=== PATIENT | male | born 1955 | race Caucasian/White ===

== ENCOUNTER → 2016-03-03 | Outpatient (CLI) | payer OTHER ==
[~2016-03-03] MED LIST: CIPRO 500MG TA500 MG PO; FLEXERIL 1010 MG/TAB PO; FLOMAX 0.40.4 MG/CAP PO; INDERAL 20MG20 MG PO; LYRICA 100MG C100 M1 PO; MIRAPEX ER0.375 MG PO; NORCO 325 MG-51 TA1 PO; PRILOSEC 20MG20 MG PO; TORADOL 10MG TA10 MG PO
== END ==
LOC: LAB 07:34
DX: D50.8 Other iron deficiency anemias (principal); B35.1 Tinea unguium

== ENCOUNTER → 2017-05-07 | Outpatient (CLI) | payer BC ==
[2015-10-29 23:58] VITALS: BP 148/84
[2017-05-07 10:24] LABS: HEMATOCRIT 50.2 % (42.0-52.0); HEMOGLOBIN 16.2 g/dL (13.5-18.0); MEAN PLATELET VOLUME 10.8 fl (7.4-10.4); RED BLOOD COUNT 5.65 M/mm3 (4.20-5.60); RED CELL DISTRIBUTION WIDTH 14.1 % (11.5-14.5); WHITE BLOOD COUNT 5.9 K/mm3 (4.8-10.8)
[2017-05-07 10:39] LABS: ALBUMIN 4.2 g/dL (3.5-5.0); BUN/CREATININE RATIO 21.6 (6.0-26.0); CALCIUM 9.2 mg/dL (8.4-10.2); POTASSIUM 4.7 mmol/L (3.6-5.0); TOTAL BILIRUBIN 1.1 mg/dL (0.2-1.3); TOTAL PROTEIN 7.5 g/dL (6.3-8.2)
== END ==
LOC: LAB 09:46
PROVIDERS: Family Medicine
DX: Z00.00 Encounter for general adult medical examination without abnormal findings (principal); R06.02 Shortness of breath; K21.9 Gastro-esophageal reflux disease without esophagitis; Z13.1 Encounter for screening for diabetes mellitus; Z13.6 Encounter for screening for cardiovascular disorders; Z86.2 Personal history of diseases of the blood and blood-forming organs and certain disorders involving the immune mechanism; Z12.12 Encounter for screening for malignant neoplasm of rectum; R53.83 Other fatigue; E66.9 Obesity, unspecified; Z88.5 Allergy status to narcotic agent

== ENCOUNTER → 2017-05-17 | Outpatient (CLI) | payer BC ==
[2015-10-29 23:58] VITALS: BP 148/84
== END ==
LOC: LAB 12:08
DX: Z12.12 Encounter for screening for malignant neoplasm of rectum (principal); Z00.00 Encounter for general adult medical examination without abnormal findings; Z86.2 Personal history of diseases of the blood and blood-forming organs and certain disorders involving the immune mechanism

== ENCOUNTER → 2017-06-16 | Outpatient (CLI) | payer BC ==
[2015-10-29 23:58] VITALS: BP 148/84
== END ==
LOC: RAD 06-15 07:15
DX: J32.0 Chronic maxillary sinusitis (principal)

== ENCOUNTER 2018-10-02 07:36 | Emergency (ER) | payer BC ==
[~2018-10-02] VITALS: Ht 195.6 cm; Wt 113.6 kg
[2018-10-02] MEDS ORDERED: NORCO 10-325 T1 EACH PO (08:32)
[2018-10-02] MEDS ORDERED: KETOROLAC10 MG PO (08:41)
[2018-10-02 08:44] VITALS: BP 138/72
== END 2018-10-02 08:44 | disposition home or self-care (01) ==
LOC: ED 07:36
DX: R07.81 Pleurodynia (principal); I45.6 Pre-excitation syndrome; K21.9 Gastro-esophageal reflux disease without esophagitis; E66.9 Obesity, unspecified; F41.9 Anxiety disorder, unspecified; G25.81 Restless legs syndrome; Z98.1 Arthrodesis status; Z88.8 Allergy status to other drugs, medicaments and biological substances; W08.XXXA Fall from other furniture, initial encounter

== ENCOUNTER → 2018-11-24 | Outpatient (CLI) | payer BC ==
[~2018-11-24] MED LIST changes: +KETOROLAC10 MG PO; +NORCO 10-325 T1 EACH PO
[2018-11-24 07:41] LABS: POTASSIUM 4.2 mmol/L (3.5-5.1)
[2018-11-24 07:42] LABS: ALBUMIN 4.1 g/dL (3.4-4.8)
[2018-11-24 07:43] LABS: CALCIUM 9.1 mg/dL (8.3-10.5)
[2018-11-24 07:44] LABS: TOTAL PROTEIN 7.2 g/dL (6.2-8.1)
== END ==
LOC: LAB 06:55
PROVIDERS: Family Medicine
DX: Z00.00 Encounter for general adult medical examination without abnormal findings (principal); Z12.5 Encounter for screening for malignant neoplasm of prostate; Z13.1 Encounter for screening for diabetes mellitus; Z13.6 Encounter for screening for cardiovascular disorders; K21.9 Gastro-esophageal reflux disease without esophagitis; R06.02 Shortness of breath; Z86.2 Personal history of diseases of the blood and blood-forming organs and certain disorders involving the immune mechanism; D50.8 Other iron deficiency anemias

== ENCOUNTER → 2019-01-02 | Outpatient (CLI) | payer BC | LOC: AMSURD 08:48 | DX: J45.909 Unspecified asthma, uncomplicated (principal); J30.9 Allergic rhinitis, unspecified; R73.01 Impaired fasting glucose ==

== ENCOUNTER → 2019-01-18 | Outpatient (CLI) | payer BC | LOC: CARDLAB 01-17 16:37 → CARDREHAB 16:24 | DX: G47.39 Other sleep apnea (principal) | CPT/HCPCS: G0399 ==

== ENCOUNTER → 2019-03-03 | Outpatient (CLI) | payer BC | LOC: EDSTATUS 07:35 → CARDREHAB 07:36 → CARDLAB 12:23 | DX: I20.9 Angina pectoris, unspecified (principal); J45.909 Unspecified asthma, uncomplicated | CPT/HCPCS: A9500 ==

== ENCOUNTER → 2019-08-23 | Outpatient (CLI) | payer OTHER, MEDICARE | LOC: RAD 10:39 | DX: M17.12 Unilateral primary osteoarthritis, left knee (principal) ==

== ENCOUNTER 2019-11-10 18:28 | Emergency (ER) | payer MEDICARE ==
[~2019-11-10] VITALS: Ht 195.6 cm; Wt 126.4 kg
[2019-11-10 18:36] VITALS: BP 147/95
[2019-11-10 19:23] LABS: URINE WBC 0 /hpf (0-3)
[2019-11-10 19:27] LABS: EOS % 0.4 % (0.0-4.0); HEMATOCRIT 45.8 % (42.0-52.0); HEMOGLOBIN 14.8 g/dL (13.5-18.0); MEAN CELL VOLUME 90 fl (78-100); MEAN CORPUSCULAR HEMOGLOBIN 29 pg (27-31); MEAN CORPUSCULAR HGB CONC 32 g/dL (33-37); MEAN PLATELET VOLUME 10.6 fl (7.4-10.4); MONO # 0.5 (0.20-0.80); NEU # 5.5 (1.40-6.50); PLATELET COUNT 168 K/mm3 (130-400); RED BLOOD COUNT 5.11 M/mm3 (4.20-5.60); WHITE BLOOD COUNT 7.1 K/mm3 (4.8-10.8)
[2019-11-10 19:33] LABS: URINE APPEARANCE HAZY; URINE COLOR BLOODY
[2019-11-10 19:34] LABS: URINE BILIRUBIN NEGATIVE (NEGATIVE); URINE BLOOD 250 ery/uL (NEGATIVE); URINE GLUCOSE NEGATIVE (NEGATIVE); URINE KETONE NEGATIVE (NEGATIVE); URINE LEUKOCYTE ESTERASE NEGATIVE (NEGATIVE); URINE NITRATE NEGATIVE (NEGATIVE); URINE PROTEIN(semi-quant) NEGATIVE (NEGATIVE); URINE UROBILINOGEN NORMAL (NORMAL)
[2019-11-10 19:36] LABS: POTASSIUM 4.5 mmol/L (3.5-5.1)
[2019-11-10 19:37] LABS: CALCIUM 9.1 mg/dL (8.3-10.5)
== END 2019-11-10 21:16 | disposition home or self-care (01) ==
LOC: ED 18:28
PROVIDERS: Family Medicine
DX: R31.9 Hematuria, unspecified (principal); R33.9 Retention of urine, unspecified; Z90.79 Acquired absence of other genital organ(s); Z98.1 Arthrodesis status; G25.81 Restless legs syndrome

== ENCOUNTER → 2019-11-16 | Outpatient (CLI) | payer MEDICARE ==
[2019-11-10 18:36] VITALS: BP 147/95
== END ==
LOC: RAD 11:24
DX: M48.02 Spinal stenosis, cervical region (principal); M50.30 Other cervical disc degeneration, unspecified cervical region; M47.812 Spondylosis without myelopathy or radiculopathy, cervical region

== ENCOUNTER → 2020-05-07 | Outpatient (CLI) | payer MEDICARE | LOC: RAD 08:38 | DX: M51.36 Other intervertebral disc degeneration, lumbar region (principal); M47.816 Spondylosis without myelopathy or radiculopathy, lumbar region; Z98.1 Arthrodesis status ==

== ENCOUNTER → 2020-09-09 | Outpatient (CLI) | payer MEDICARE ==
[2020-09-09 12:38] LABS: HEMATOCRIT 46.8 % (42.0-52.0); HEMOGLOBIN 14.8 g/dL (13.5-18.0); RED BLOOD COUNT 5.24 M/mm3 (4.20-5.60); WHITE BLOOD COUNT 8.3 K/mm3 (4.8-10.8)
[2020-09-09 12:42] LABS: POTASSIUM 4.5 mmol/L (3.5-5.1)
[2020-09-09 12:43] LABS: CALCIUM 9.1 mg/dL (8.3-10.5)
[2020-09-09 12:44] LABS: TOTAL PROTEIN 6.9 g/dL (6.2-8.1)
[2020-09-09 12:46] LABS: TOTAL BILIRUBIN 0.6 mg/dL (0.2-1.2)
== END ==
LOC: LAB 12:19
PROVIDERS: Family Medicine
DX: R06.00 Dyspnea, unspecified (principal); R58 Hemorrhage, not elsewhere classified; R73.9 Hyperglycemia, unspecified

== ENCOUNTER → 2020-09-18 | Outpatient (CLI) | payer MEDICARE | LOC: RAD 10:17 | DX: Z98.1 Arthrodesis status (principal) ==

== ENCOUNTER → 2020-10-01 | Outpatient (CLI) | payer MEDICARE ==
[2020-10-02 15:38] LABS: SJOGRENS SSA 6 U/mL (0-99); SJOGRENS SSB 10 U/mL (0-99)
== END ==
LOC: LAB 14:31
PROVIDERS: Physician Assistant
DX: R68.2 Dry mouth, unspecified (principal); L03.019 Cellulitis of unspecified finger

== ENCOUNTER → 2020-10-01 | Outpatient (CLI) | payer MEDICARE | LOC: LAB 16:37 | DX: L03.019 Cellulitis of unspecified finger (principal) ==

== ENCOUNTER → 2020-12-20 | Outpatient (CLI) | payer MEDICARE ==
[2020-12-20 14:28] LABS: BASO # 0.03 K/mm3 (0.02-0.10); EOS # 0.14 K/mm3 (0.04-0.40); EOS % 2.2 % (0.0-4.0); HEMATOCRIT 46.6 % (42.0-52.0); LYMPH# 1.73 K/mm3 (1.50-4.00); MEAN CELL VOLUME 90 fl (78-100); MEAN CORPUSCULAR HEMOGLOBIN 29 pg (27-31); MEAN CORPUSCULAR HGB CONC 32 g/dL (33-37); MEAN PLATELET VOLUME 10.5 fl (7.4-10.4); NEU # 3.98 K/mm3 (1.40-6.50); PLATELET COUNT 160 K/mm3 (130-400); RED BLOOD COUNT 5.19 M/mm3 (4.20-5.60); RED CELL DISTRIBUTION WIDTH 14.4 % (11.5-14.5); WHITE BLOOD COUNT 6.4 K/mm3 (4.8-10.8)
[2020-12-20 14:48] LABS: ALBUMIN 3.9 g/dL (3.4-4.8); POTASSIUM 4.2 mmol/L (3.5-5.1)
[2020-12-20 14:49] LABS: CALCIUM 9.2 mg/dL (8.3-10.5)
[2020-12-20 14:51] LABS: TOTAL PROTEIN 6.9 g/dL (6.2-8.1)
[2020-12-20 14:53] LABS: TOTAL BILIRUBIN 0.7 mg/dL (0.2-1.2)
[2020-12-20 14:55] LABS: URINE APPEARANCE HAZY; URINE BILIRUBIN NEGATIVE (NEGATIVE); URINE BLOOD 250 ery/uL (NEGATIVE); URINE COLOR YELLOW; URINE GLUCOSE NEGATIVE (NEGATIVE); URINE KETONE NEGATIVE (NEGATIVE); URINE LEUKOCYTE ESTERASE NEGATIVE (NEGATIVE); URINE MUCUS PRESENT (NOT PRESENT); URINE NITRATE NEGATIVE (NEGATIVE); URINE PROTEIN(semi-quant) NEGATIVE (NEGATIVE); URINE UROBILINOGEN NORMAL (NORMAL)
== END ==
LOC: LAB 13:54
PROVIDERS: Family Medicine
DX: Z11.59 Encounter for screening for other viral diseases (principal); Z13.6 Encounter for screening for cardiovascular disorders; M17.12 Unilateral primary osteoarthritis, left knee; I10 Essential (primary) hypertension; R73.9 Hyperglycemia, unspecified

== ENCOUNTER → 2020-12-27 | Outpatient (CLI) | payer MEDICARE ==
[2020-12-27 08:16] LABS: PH-URINE 5.5 (5.0 - 8.0); URINE APPEARANCE CLEAR; URINE BILIRUBIN NEGATIVE (NEGATIVE); URINE BLOOD TRACE (NEGATIVE); URINE COLOR YELLOW; URINE GLUCOSE NEGATIVE (NEGATIVE); URINE KETONE NEGATIVE (NEGATIVE); URINE LEUKOCYTE ESTERASE NEGATIVE (NEGATIVE); URINE NITRATE NEGATIVE (NEGATIVE); URINE PROTEIN(semi-quant) TRACE mg/dL (NEGATIVE); URINE UROBILINOGEN NORMAL (NORMAL); URINE WBC 0-1 /hpf (0-3)
== END ==
LOC: LAB 07:45
PROVIDERS: Family Medicine
DX: R31.29 Other microscopic hematuria (principal)

== ENCOUNTER → 2021-01-27 | Outpatient (CLI) | payer MEDICARE ==
[2021-01-27 10:53] LABS: BASO # 0.02 K/mm3 (0.02-0.10); EOS # 0.09 K/mm3 (0.04-0.40); EOS % 0.6 % (0.0-4.0); HEMATOCRIT 43.3 % (42.0-52.0); HEMOGLOBIN 13.5 g/dL (13.5-18.0); LYMPH# 1.06 K/mm3 (1.50-4.00); MEAN CELL VOLUME 92 fl (78-100); MEAN CORPUSCULAR HEMOGLOBIN 29 pg (27-31); MEAN CORPUSCULAR HGB CONC 31 g/dL (33-37); MEAN PLATELET VOLUME 10.2 fl (7.4-10.4); MONO # 0.92 K/mm3 (0.20-0.80); NEU # 12.44 K/mm3 (1.40-6.50); PLATELET COUNT 162 K/mm3 (130-400); RED BLOOD COUNT 4.71 M/mm3 (4.20-5.60); RED CELL DISTRIBUTION WIDTH 14.3 % (11.5-14.5); WHITE BLOOD COUNT 14.6 K/mm3 (4.8-10.8)
[2021-01-27 12:00] LABS: ERYTHROCYTE SEDIMENTATION RATE 21 mm/hr (0-20)
== END ==
LOC: LAB 10:37
PROVIDERS: Orthopaedic Surgery Sports Medicine
DX: M25.562 Pain in left knee (principal); Z96.652 Presence of left artificial knee joint

== ENCOUNTER 2021-02-07 16:42 | Outpatient (RCR) | payer MEDICARE ==
[2021-02-04 16:56] VITALS: BP 142/90
[2021-02-05 17:20] VITALS: BP 142/86
[2021-02-06 17:04] VITALS: BP 128/79
[~2021-02-07] VITALS: Ht 195.6 cm; Wt 122.7 kg
[2021-02-07 17:14] VITALS: BP 144/85
[2021-02-08 17:02] VITALS: BP 124/65
== END 2021-02-07 18:00 | disposition home or self-care (01) ==
LOC: AMSURD 16:42
DX: M00.9 Pyogenic arthritis, unspecified (principal)
CPT/HCPCS: J0878

== ENCOUNTER → 2021-02-10 | Outpatient (CLI) | payer MEDICARE ==
[2021-02-10 17:59] LABS: HEMATOCRIT 40.2 % (42.0-52.0); HEMOGLOBIN 12.7 g/dL (13.5-18.0); MEAN PLATELET VOLUME 10.3 fl (7.4-10.4); RED BLOOD COUNT 4.51 M/mm3 (4.20-5.60); RED CELL DISTRIBUTION WIDTH 14.1 % (11.5-14.5); WHITE BLOOD COUNT 8.3 K/mm3 (4.8-10.8)
[2021-02-10 18:10] LABS: ALBUMIN 3.5 g/dL (3.4-4.8); POTASSIUM 3.8 mmol/L (3.5-5.1)
[2021-02-10 18:11] LABS: CALCIUM 8.7 mg/dL (8.3-10.5)
[2021-02-10 18:15] LABS: TOTAL BILIRUBIN 0.4 mg/dL (0.2-1.2)
== END ==
LOC: LAB 16:51
PROVIDERS: Orthopaedic Surgery Sports Medicine
DX: M00.9 Pyogenic arthritis, unspecified (principal)

== ENCOUNTER → 2021-02-17 | Outpatient (CLI) | payer MEDICARE ==
[2021-02-17 18:33] LABS: HEMATOCRIT 41.2 % (42.0-52.0); HEMOGLOBIN 13.1 g/dL (13.5-18.0); MEAN PLATELET VOLUME 10.3 fl (7.4-10.4); RED BLOOD COUNT 4.68 M/mm3 (4.20-5.60); RED CELL DISTRIBUTION WIDTH 14.1 % (11.5-14.5); WHITE BLOOD COUNT 8.8 K/mm3 (4.8-10.8)
[2021-02-17 18:46] LABS: ALBUMIN 3.6 g/dL (3.4-4.8); POTASSIUM 4.5 mmol/L (3.5-5.1)
[2021-02-17 18:47] LABS: CALCIUM 9.3 mg/dL (8.3-10.5)
[2021-02-17 18:48] LABS: TOTAL PROTEIN 7.1 g/dL (6.2-8.1)
[2021-02-17 18:50] LABS: TOTAL BILIRUBIN 0.4 mg/dL (0.2-1.2)
== END ==
LOC: LAB 16:54
PROVIDERS: Family Medicine
DX: M00.9 Pyogenic arthritis, unspecified (principal)

== ENCOUNTER → 2021-02-24 | Outpatient (CLI) | payer MEDICARE ==
[2021-02-24 17:00] LABS: HEMATOCRIT 39.8 % (42.0-52.0); HEMOGLOBIN 12.6 g/dL (13.5-18.0); MEAN PLATELET VOLUME 11.6 fl (7.4-10.4); RED BLOOD COUNT 4.54 M/mm3 (4.20-5.60); RED CELL DISTRIBUTION WIDTH 14.3 % (11.5-14.5); WHITE BLOOD COUNT 8.1 K/mm3 (4.8-10.8)
[2021-02-24 17:09] LABS: ALBUMIN 3.5 g/dL (3.4-4.8); POTASSIUM 4.1 mmol/L (3.5-5.1)
[2021-02-24 17:10] LABS: CALCIUM 8.8 mg/dL (8.3-10.5)
[2021-02-24 17:13] LABS: TOTAL BILIRUBIN 0.4 mg/dL (0.2-1.2)
== END ==
LOC: LAB 15:44
PROVIDERS: Family Medicine
DX: M00.9 Pyogenic arthritis, unspecified (principal)

== ENCOUNTER → 2021-03-03 | Outpatient (CLI) | payer MEDICARE ==
[2021-03-03 17:50] LABS: HEMATOCRIT 41.2 % (42.0-52.0); HEMOGLOBIN 13.1 g/dL (13.5-18.0); MEAN PLATELET VOLUME 10.3 fl (7.4-10.4); RED BLOOD COUNT 4.78 M/mm3 (4.20-5.60); RED CELL DISTRIBUTION WIDTH 14.3 % (11.5-14.5); WHITE BLOOD COUNT 8.7 K/mm3 (4.8-10.8)
[2021-03-03 18:00] LABS: ALBUMIN 3.5 g/dL (3.4-4.8); POTASSIUM 4.4 mmol/L (3.5-5.1)
[2021-03-03 18:02] LABS: CALCIUM 9.3 mg/dL (8.3-10.5)
[2021-03-03 18:03] LABS: TOTAL PROTEIN 7.2 g/dL (6.2-8.1)
[2021-03-03 18:05] LABS: TOTAL BILIRUBIN 0.4 mg/dL (0.2-1.2)
== END ==
LOC: LAB 16:56
PROVIDERS: Internal Medicine Infectious Disease
DX: M00.9 Pyogenic arthritis, unspecified (principal)

== ENCOUNTER → 2021-03-10 | Outpatient (RCR) | payer MEDICARE ==
[2021-02-09 17:00] VITALS: BP 160/85
[2021-02-10 17:20] VITALS: BP 143/90
[2021-02-11 17:15] VITALS: BP 158/95
[2021-02-12 17:11] VITALS: BP 159/85
[2021-02-13 17:05] VITALS: BP 160/84
[2021-02-14 17:05] VITALS: BP 149/81
[2021-02-15 16:56] VITALS: BP 153/83
[2021-02-16 16:56] VITALS: BP 155/92
[2021-02-17 18:20] VITALS: BP 133/76
[2021-02-18 17:15] VITALS: BP 130/76
[2021-02-19 18:04] VITALS: BP 126/81
[2021-02-21 17:00] VITALS: BP 156/83
[2021-02-22 17:45] VITALS: BP 129/79
[2021-02-23 17:33] VITALS: BP 124/73
[2021-02-24 16:09] VITALS: BP 119/75
[2021-02-25 17:14] VITALS: BP 123/76
[2021-02-27 17:00] VITALS: BP 162/86
[2021-02-28 14:57] VITALS: BP 117/82
[2021-03-01 17:21] VITALS: BP 148/77
[2021-03-02 18:11] VITALS: BP 157/78
[2021-03-03 17:23] VITALS: BP 120/76
[2021-03-04 17:21] VITALS: BP 138/83
[2021-03-05 17:05] VITALS: BP 119/78
[2021-03-06 17:09] VITALS: BP 145/81
[2021-03-07 15:25] VITALS: BP 145/82
[2021-03-08 17:45] VITALS: BP 150/81
[2021-03-09 17:09] VITALS: BP 151/87
[~2021-03-10] VITALS: Ht 195.6 cm; Wt 122.7 kg
[2021-03-10 17:25] VITALS: BP 154/83
== END | disposition home or self-care (01) ==
LOC: AMSURD
DX: M00.9 Pyogenic arthritis, unspecified (principal)
CPT/HCPCS: J0878

== ENCOUNTER → 2021-03-10 | Outpatient (CLI) | payer MEDICARE ==
[2021-03-10 18:52] LABS: HEMATOCRIT 40.5 % (42.0-52.0); HEMOGLOBIN 12.8 g/dL (13.5-18.0); MEAN PLATELET VOLUME 11.3 fl (7.4-10.4); RED BLOOD COUNT 4.67 M/mm3 (4.20-5.60); RED CELL DISTRIBUTION WIDTH 14.6 % (11.5-14.5)
[2021-03-10 19:00] LABS: ALBUMIN 3.5 g/dL (3.4-4.8)
[2021-03-10 19:01] LABS: CALCIUM 8.9 mg/dL (8.3-10.5)
[2021-03-10 19:03] LABS: TOTAL PROTEIN 6.9 g/dL (6.2-8.1)
[2021-03-10 19:05] LABS: TOTAL BILIRUBIN 0.5 mg/dL (0.2-1.2)
== END ==
LOC: LAB 16:47
PROVIDERS: Internal Medicine Infectious Disease
DX: M00.9 Pyogenic arthritis, unspecified (principal)

== ENCOUNTER → 2021-03-16 | Outpatient (CLI) | payer MEDICARE ==
[2021-03-16 18:32] LABS: HEMATOCRIT 39.1 % (42.0-52.0); HEMOGLOBIN 12.1 g/dL (13.5-18.0); MEAN PLATELET VOLUME 11.1 fl (7.4-10.4); RED BLOOD COUNT 4.44 M/mm3 (4.20-5.60); RED CELL DISTRIBUTION WIDTH 14.7 % (11.5-14.5); WHITE BLOOD COUNT 7.8 K/mm3 (4.8-10.8)
== END ==
LOC: LAB 17:05
PROVIDERS: Family Medicine
DX: M00.9 Pyogenic arthritis, unspecified (principal)

== ENCOUNTER → 2021-03-17 | Outpatient (CLI) | payer MEDICARE ==
[2021-03-17 16:08] LABS: ALBUMIN 3.5 g/dL (3.4-4.8); POTASSIUM 4.2 mmol/L (3.5-5.1)
[2021-03-17 16:11] LABS: TOTAL PROTEIN 6.6 g/dL (6.2-8.1)
[2021-03-17 16:13] LABS: TOTAL BILIRUBIN 0.5 mg/dL (0.2-1.2)
[2021-03-17 17:12] LABS: HEMATOCRIT 39.6 % (42.0-52.0); HEMOGLOBIN 12.5 g/dL (13.5-18.0); MEAN PLATELET VOLUME 11.7 fl (7.4-10.4); RED BLOOD COUNT 4.62 M/mm3 (4.20-5.60); RED CELL DISTRIBUTION WIDTH 14.7 % (11.5-14.5); WHITE BLOOD COUNT 7.4 K/mm3 (4.8-10.8)
== END ==
LOC: LAB 14:35 → AMSURD 14:35
PROVIDERS: Internal Medicine Infectious Disease
DX: M00.9 Pyogenic arthritis, unspecified (principal)

== ENCOUNTER → 2021-05-16 | Outpatient (CLI) | payer MEDICARE ==
[2021-05-16 08:47] LABS: BASO # 0.02 K/mm3 (0.02-0.10); HEMATOCRIT 46.8 % (42.0-52.0); HEMOGLOBIN 14.6 g/dL (13.5-18.0); LYMPH# 1.04 K/mm3 (1.50-4.00); MEAN CELL VOLUME 87 fl (78-100); MEAN CORPUSCULAR HEMOGLOBIN 27 pg (27-31); MEAN CORPUSCULAR HGB CONC 31 g/dL (33-37); MEAN PLATELET VOLUME 10.4 fl (7.4-10.4); MONO # 0.47 K/mm3 (0.20-0.80); NEU # 3.34 K/mm3 (1.40-6.50); PLATELET COUNT 140 K/mm3 (130-400); RED BLOOD COUNT 5.36 M/mm3 (4.20-5.60); RED CELL DISTRIBUTION WIDTH 15.8 % (11.5-14.5)
[2021-05-16 08:54] LABS: ERYTHROCYTE SEDIMENTATION RATE 4 mm/hr (0-20)
== END ==
LOC: LAB 07:03
PROVIDERS: Family Medicine
DX: Z47.1 Aftercare following joint replacement surgery (principal); M25.562 Pain in left knee; Z96.652 Presence of left artificial knee joint

== ENCOUNTER → 2021-08-22 | Outpatient (CLI) | payer MEDICARE | LOC: LAB 07:21 | DX: Z03.89 Encounter for observation for other suspected diseases and conditions ruled out (principal); E83.10 Disorder of iron metabolism, unspecified ==

== ENCOUNTER → 2021-09-09 | Outpatient (CLI) | payer MEDICARE ==
[2021-09-09 08:28] LABS: HEMATOCRIT 45.2 % (42.0-52.0); HEMOGLOBIN 14.6 g/dL (13.5-18.0); MEAN PLATELET VOLUME 10.8 fl (7.4-10.4); RED BLOOD COUNT 4.95 M/mm3 (4.20-5.60); RED CELL DISTRIBUTION WIDTH 15.2 % (11.5-14.5); WHITE BLOOD COUNT 4.6 K/mm3 (4.8-10.8)
== END ==
LOC: LAB 08:00
DX: Z01.89 Encounter for other specified special examinations (principal)

== ENCOUNTER → 2021-12-19 | Outpatient (CLI) | payer MEDICARE | LOC: RAD 08:30 | DX: M19.011 Primary osteoarthritis, right shoulder (principal) ==

== ENCOUNTER → 2022-04-20 | Outpatient (CLI) | payer MEDICARE | LOC: LAB 08:36 | DX: R05.9 Cough, unspecified (principal) ==

== ENCOUNTER → 2022-04-23 | Outpatient (CLI) | payer MEDICARE | LOC: LAB 12:33 | DX: R05.9 Cough, unspecified (principal) ==

== ENCOUNTER → 2022-11-17 | Outpatient (CLI) | payer MEDICARE ==
[~2022-11-17] MED LIST changes: +FLOMAX0.4 MG PO; +MACROBID 100 M100 MG PO; +MELOXICAM15 MG PO; +PERCOCET 325 MG1 TA5 PO; +PRAMIPEXOLE DIHY1 MG PO; +PREGABALIN200 MG PO; +PROPRANOLOL HYD60 M1 PO; +RITALIN 20M20 MG/TAB PO; +ROPINIROLE HCL1 MG PO; +TADALAFIL5 M1 PO; +TRELEGY ELLIPT1 EAC1 IH; +WELLBUTRIN XL300 M1 PO; +ZESTRIL5 M1 PO; +ZOFRAN ODT4 MG PO
[2022-11-17 07:42] LABS: POTASSIUM 4.4 mmol/L (3.5-5.1)
== END ==
LOC: LAB 07:09
PROVIDERS: Family Medicine
DX: E11.9 Type 2 diabetes mellitus without complications (principal); I10 Essential (primary) hypertension

== ENCOUNTER → 2023-02-12 | Outpatient (CLI) | payer MEDICARE ==
[2023-02-12 07:30] LABS: CALCIUM 9.4 mg/dL (8.3-10.5)
[2023-02-15 13:45] LABS: BASO # 0.13 K/mm3 (0.02-0.10); EOS # 0.07 K/mm3 (0.04-0.40); EOS % 1.3 % (0.0-4.0); HEMATOCRIT 47.1 % (42.0-52.0); HEMOGLOBIN 14.9 g/dL (13.5-18.0); LYMPH# 0.74 K/mm3 (1.50-4.00); MEAN CELL VOLUME 93 fl (78-100); MEAN CORPUSCULAR HEMOGLOBIN 29 pg (27-31); MEAN CORPUSCULAR HGB CONC 32 g/dL (33-37); MEAN PLATELET VOLUME 12.3 fl (7.4-10.4); MONO # 0.48 K/mm3 (0.20-0.80); NEU # 4.07 K/mm3 (1.40-6.50); PLATELET COUNT 98 K/mm3 (130-400); RED BLOOD COUNT 5.06 M/mm3 (4.20-5.60); RED CELL DISTRIBUTION WIDTH 13.6 % (11.5-14.5); WHITE BLOOD COUNT 5.5 K/mm3 (4.8-10.8)
== END ==
LOC: LAB 04-16 09:15 → RAD 07:01 → LAB 07:01
PROVIDERS: Family Medicine
DX: Z00.00 Encounter for general adult medical examination without abnormal findings (principal); Z12.5 Encounter for screening for malignant neoplasm of prostate; Z12.11 Encounter for screening for malignant neoplasm of colon; E11.9 Type 2 diabetes mellitus without complications; I10 Essential (primary) hypertension; L82.1 Other seborrheic keratosis; G54.1 Lumbosacral plexus disorders

== ENCOUNTER → 2023-02-15 | Outpatient (CLI) | payer MEDICARE ==
[2023-02-15 14:14] LABS: URINE APPEARANCE CLEAR (CLEAR); URINE BILIRUBIN NEGATIVE (NEGATIVE); URINE BLOOD NEGATIVE (NEGATIVE); URINE COLOR YELLOW (YELLOW); URINE GLUCOSE NEGATIVE (NEGATIVE); URINE KETONE NEGATIVE (NEGATIVE); URINE LEUKOCYTE ESTERASE NEGATIVE (NEGATIVE); URINE NITRATE NEGATIVE (NEGATIVE); URINE PROTEIN(semi-quant) NEGATIVE (NEGATIVE)
[2023-02-15 14:21] LABS: URINE MUCUS PRESENT (NOT PRESENT); URINE WBC 0-1 /hpf (0-3)
== END ==
LOC: LAB 13:59
PROVIDERS: Family Medicine
DX: E11.9 Type 2 diabetes mellitus without complications (principal)

== ENCOUNTER → 2023-07-07 | Outpatient (CLI) | payer MEDICARE ==
[2023-08-26 10:35] LABS: BASO # 0.01 K/mm3 (0.02-0.10); EOS # 0.12 K/mm3 (0.04-0.40); EOS % 2.4 % (0.0-4.0); HEMATOCRIT 43.1 % (42.0-52.0); HEMOGLOBIN 14.2 g/dL (13.5-18.0); LYMPH# 1.03 K/mm3 (1.50-4.00); MEAN CELL VOLUME 89 fl (78-100); MEAN CORPUSCULAR HEMOGLOBIN 29 pg (27-31); MEAN CORPUSCULAR HGB CONC 33 g/dL (33-37); MEAN PLATELET VOLUME 11.2 fl (7.4-10.4); MONO # 0.44 K/mm3 (0.20-0.80); NEU # 3.39 K/mm3 (1.40-6.50); PLATELET COUNT 139 K/mm3 (130-400); RED BLOOD COUNT 4.85 M/mm3 (4.20-5.60); RED CELL DISTRIBUTION WIDTH 14.3 % (11.5-14.5)
[2023-08-26 11:32] LABS: ALBUMIN 3.9 g/dL (3.4-4.8); TOTAL BILIRUBIN 0.4 mg/dL (0.2-1.2); TOTAL PROTEIN 6.8 g/dL (6.2-8.1)
[2023-08-26 12:13] LABS: PROTHROMBIN TIME 9.6 SECONDS (9.0-12.0)
== END ==
LOC: LAB 16:54
PROVIDERS: Student in an Organized Health Care Education/Training Program
DX: Z01.812 Encounter for preprocedural laboratory examination (principal); Z22.322 Carrier or suspected carrier of Methicillin resistant Staphylococcus aureus

== ENCOUNTER → 2023-11-02 | Outpatient (CLI) | payer MEDICARE | LOC: RAD 08:40 | DX: N28.1 Cyst of kidney, acquired (principal) ==

== ENCOUNTER → 2023-11-08 | Outpatient (CLI) | payer MEDICARE | LOC: RAD 07:43 | DX: M47.816 Spondylosis without myelopathy or radiculopathy, lumbar region (principal); S22.080A Wedge compression fracture of T11-T12 vertebra, initial encounter for closed fracture; X58.XXXA Exposure to other specified factors, initial encounter; Z98.890 Other specified postprocedural states; Z98.1 Arthrodesis status ==

== ENCOUNTER → 2023-11-11 | Outpatient (CLI) | payer MEDICARE | LOC: LAB 13:58 | PROVIDERS: Family Medicine | DX: E11.9 Type 2 diabetes mellitus without complications (principal) ==

== ENCOUNTER → 2023-12-30 | Outpatient (CLI) | payer MEDICARE ==
[2023-12-30 10:22] LABS: MAGNESIUM 2.01 mg/dL (1.60-2.60)
[2024-01-03 14:10] LABS: VITAMIN B1 103.5 nmol/L (())
== END ==
LOC: LAB 09:52
PROVIDERS: Physician Assistant
DX: E11.9 Type 2 diabetes mellitus without complications (principal); R53.83 Other fatigue; Z68.32 Body mass index [BMI] 32.0-32.9, adult

== ENCOUNTER → 2024-01-07 | Outpatient (CLI) | payer MEDICARE ==
[2024-01-07 13:02] LABS: BASO # 0.02 K/mm3 (0.02-0.10); EOS # 0.08 K/mm3 (0.04-0.40); EOS % 1.5 % (0.0-4.0); HEMATOCRIT 43.9 % (42.0-52.0); HEMOGLOBIN 14.2 g/dL (13.5-18.0); LYMPH# 1.15 K/mm3 (1.50-4.00); MEAN CELL VOLUME 92 fl (78-100); MEAN CORPUSCULAR HEMOGLOBIN 30 pg (27-31); MEAN CORPUSCULAR HGB CONC 32 g/dL (33-37); MEAN PLATELET VOLUME 10.3 fl (7.4-10.4); MONO # 0.39 K/mm3 (0.20-0.80); NEU # 3.56 K/mm3 (1.40-6.50); PLATELET COUNT 142 K/mm3 (130-400); RED CELL DISTRIBUTION WIDTH 13.5 % (11.5-14.5); WHITE BLOOD COUNT 5.2 K/mm3 (4.8-10.8)
== END ==
LOC: LAB 12:47
DX: D50.8 Other iron deficiency anemias (principal)